=== PATIENT | female | born 1990 | race Caucasian/White ===

== ENCOUNTER → 2019-11-05 07:17 | Outpatient (CLI) | payer OTHER | END | disposition home or self-care (01) | LOC: LAB 07:17 | DX: N91.1 Secondary amenorrhea (principal) ==

== ENCOUNTER → 2019-11-05 | Day surgery (SDC) | payer OTHER ==
[~2019-11-05] MED LIST: ANUSOL-HC30 G2 RECTAL; CODE1TAB37 PO; MORGIDOX100 MG PO; NAPROXEN500 MG PO; Tylenol #3 PO
== END | disposition home or self-care (01) ==
LOC: ADM 11-03 10:45 → CIR.AMB 05:42
DX: D25.0 Submucous leiomyoma of uterus (principal); N84.0 Polyp of corpus uteri